=== PATIENT | male | born 1990 | race Caucasian/White ===

== ENCOUNTER 2021-02-18 02:43 | Emergency (ER) | payer SELFPAY ==
[2021-02-18] VITALS (7 sets, daily range): BP systolic 109–140; BP diastolic 73–96; PULSE 75–98; RESP 16–20; TEMP 36.7; O2SAT 97–100
--- NOTE | ~2021-02-18 | CT_ITS ---
EXAMINATION: CTA chest PE abdomen pel DATE: 02/18/2021 04:19 INDICATION: Covid. Shortness of breath. Right-sided abdominal pain. TECHNIQUE: Computed tomography angiography (CTA) of the chest and abdomen was performed with 100 mL O mnipaque-350 intravenous contrast timed to evaluate the pulmonary arteries. Coronal maximum intensity projection 3D-reconstructions were created by the technologist. Automated exposure control and itera tive reconstruction technique were employed. Exam dose: 420.66 mGy-cm total exam DLP. COMPARISON: 05/08/2010 two-view chest FINDINGS: There is diagnostic contrast enhancement of the pulmonary stenosis of pulmonary embolism. No thoracic aortic aneurysm or dissection. Normal heart size. No pericardial or pleural effusion. No pulmonary infiltrate or consolidation or pulmonary mass lesion. The liver, gallbladder, spleen, pancreas, bile ducts, pancreatic duct, and adrenal glands and kidneys are unremarkable. Normal caliber of the abdominal aorta. No intraperitoneal or retroperitoneal or pelvic mass lesion or adenopathy or ascites. The appendix is partially visualized visualized; the visualized portion appears unremarkable. There a re nondilated fluid containing small bowel segments. No bowel obstruction, bowel wall thickening, pne umatosis or intraperitoneal free air is evident. The urinary bladder and prostate gland are unremarkable. There is mild loss of height and anterior wedging of T6 and to a greater extent C7, chronic. There is hemangioma of T8 vertebral body. IMPRESSION: No evidence of pulmonary embolism Nonspecific abdomen Reviewed, dictated and finalized at [facility]. Reviewed, dictated and finalized at [facility].
--- NOTE | 2021-02-18 02:47 | ECG_ITS ---
Measurements Intervals [place] Rate: 76 P: 71 DE: 176 QRS: 58 QRSD: 101 T: 60 QT: 364 QTc: 410 Interpretive Statements SINUS RHYTHM WITH MARKED SINUS ARRHYTHMIA POSSIBLE LEFT ATRIAL ENLARGEMENT INCOMPLETE RIGHT BUNDLE BRANCH BLOCK BORDERLINE ECG Electronically Signed On 02-18-2021 6:18:19 CDT by Juan Groves D.O.
[2021-02-18 03:14] LABS: Anion Gap 13 mmol/L (8-16); Blood Urea Nitrogen 15 mg/dL (9-20); Calcium 9.6 mg/dL (8.4-10.2); Carbon Dioxide 30 mmol/L (22-30); Chloride 97 mmol/L (98-107); Estimated CRCL calculation 78 ml/min; Estimated Glomerular Filt Rate > 60; Glucose 135 mg/dL (65-110); Potassium 3.5 mmol/L (3.4-5.0); Sodium 140 mmol/L (137-145)
[2021-02-18 03:22] LABS: Basophils Percent Auto 0.4 % (0.2-1.2); Eosinophils Absolute Auto 0.2 K/mm3 (0-0.3); Eosinophils Percent Auto 1.5 % (0-4.4); Hematocrit 43.6 % (42.0-52.0); Hemoglobin 15.5 g/dL (14.0-18.0); Immature Granulocyte Absolute 0.02 K/mm3 (0.00-0.031); Immature Granulocyte Percent A 0.2 % (0-0.5); Lymphocytes Absolute Auto 4.48 K/mm3 (0.9-3.2); Lymphocytes Percent Auto 44.7 % (18.3-44.2); Mean Corpuscular HGB Conc 35.6 g/dl (32-36); Mean Corpuscular Hemoglobin 31.9 pg (26-34); Mean Corpuscular Volume 89.7 fl (80-100); Monocytes Absolute Auto 0.7 K/mm3 (0.1-0.6); Monocytes Percent Auto 6.5 % (2.6-8.5); Neutrophils Absolute Auto 4.7 K/mm3 (1.3-6.7); Neutrophils Percent Auto 46.7 % (45.5-73.1); Platelet Count Result 246 k/mm3 (150-375); Red Blood Count 4.86 M/mm3 (4.6-6.20); Red Cell Distribution Width 11.9 % (11.5-14.5)
--- NOTE | 2021-02-18 03:23 | ED.SYNCOPE ---
HPI - Syncope General Chief Complaint: Syncope <Mercedse Arcos MD - Last Filed: 02/18/21 07:48> Stated Complaint: Popped back, near syncope <Mercedes Arcos MD - Last Filed: 02/18/21 07:48> Time Seen by Provider: 02/18/21 03:22 <Mercedes Arcos MD - Last Filed: 02/18/21 07:48> Source: patient and family <Mercedes Arcos MD - Last Filed: 02/18/21 07:48> Mode of arrival: ambulatory <Mercedes Arcos MD - Last Filed: 02/18/21 07:48> Limitations: no limitations <Mercedes Arcos MD - Last Filed: 02/18/21 07:48> History of Present Illness HPI narrative: Patient is a 30-year-old male who presents for evaluation of left lower back pain, chest pain. Patient states that he was popping his back when he felt an immediate hdz of pain in his middle back which radiated into his chest. He states that he then nearly passed out and fell himself blacking out. He has felt dizzy and diffusely weak. He states that he is worried he is hemorrhaging internally. He denies fever, chills, nausea or vomiting. He reports chest pain that began while he was in the waiting room which is currently mild in nature no ripping or tearing sensation to the flank although he does report some left lower flank pain secondary to popping his back. Patient denies any current frontal abdominal pain. No bruising. He has been ambulatory. He denies any focal weakness or numbness. Patient states that he has a history of Covid last month for which she did not require hospitalization. No leg swelling or calf pain. No history of coagulopathy. Patient does report daily marijuana use. He denies other drug or alcohol use. <Mercedes Arcos MD - Last Filed: 02/18/21 07:48> Related Data Allergies/Adverse Reactions: Allergies Allergy/AdvReac Type Severity Reaction Status Date / Time No Known Allergies Allergy Verified 08/29/16 16:57 <Mercedes Arcos MD - Last Filed: 02/18/21 07:48> Review of Systems Review of Systems: CONSTITUTIONAL: Denies fever, chills, or sweats. EYES: Denies visual changes, redness, or discharge. ENT: Denies rhinorrhea, congestion, sore throat, or otalgia. CARDIOVASCULAR: Reports mild chest pain, reports palpitations, denies leg edema RESPIRATORY: Denies cough or dyspnea. GASTROINTESTINAL: Denies abdominal pain, nausea, vomiting, or diarrhea. Reports left flank pain. GENITOURINARY: Denies dysuria or hematuria. SKIN: Denies rash or itching. MUSCULOSKELETAL: Denies other joint pain or myalgia NEUROLOGIC: Denies headache, numbness, or weakness. Reports lightheadedness PSYCHIATRIC: Denies anxiety or depression. <Mercedes Arcos MD - Last Filed: 02/18/21 07:48> [facility] Social History Social History: Social History (Updated 02/18/21 @ 03:52 by Mercedes Arcos MD) Smoking status: Never smoker Alcohol intake: never Substance use: current Substance use type: marijuana Living arrangements: with family Gender identity (if verbalized by the patient): Male <Mercedes Arcos MD - Last Filed: 02/18/21 07:48> Exam Narrative: GENERAL: Awake, alert, conversant HEAD: Normocephalic, atraumatic. EYES: PERRLA and EOMI. ENT: Nares clear, no rhinorrhea or epistaxis. Mucous membranes moist. NECK: Supple.No cervical midline tenderness. CHEST: No respiratory distress, breathing even and non labored, no chest wall tenderness HEART: Regular rate, sinus rhythm ABDOMEN:Non distended, non tender Thorax: No midline thoracic or lumbar tenderness,+ left paraspinal tenderness EXTREMITIES: Normal range of motion. No edema. SKIN: Warm, dry, no rash. NEURO:No focal deficits. Alert and oriented x3. Finger to nose intact bilaterally. EOMs intact without nystagmus. No facial droop/asymmetry noted bilaterally. Grimace intact. Intact sensation in face. Hearing intact bilaterally. Shoulder shrug intact. Strength 5/5 bilateral upper extremities. Strength 5/5 bilateral lower extremities. Reflexes 2+ patella
[2021-02-18 04:14] LABS: Basophils Percent Auto 0.3 % (0.2-1.2); Eosinophils Absolute Auto 0.1 K/mm3 (0-0.3); Eosinophils Percent Auto 1.5 % (0-4.4); Hematocrit 41.9 % (42.0-52.0); Immature Granulocyte Absolute 0.01 K/mm3 (0.00-0.031); Immature Granulocyte Percent A 0.2 % (0-0.5); Lymphocytes Absolute Auto 2.18 K/mm3 (0.9-3.2); Lymphocytes Percent Auto 32.9 % (18.3-44.2); Mean Corpuscular HGB Conc 35.8 g/dl (32-36); Mean Corpuscular Hemoglobin 31.6 pg (26-34); Mean Corpuscular Volume 88.4 fl (80-100); Mean Platelet Volume 9.8 fl (7.4-10.4); Monocytes Absolute Auto 0.4 K/mm3 (0.1-0.6); Monocytes Percent Auto 6.2 % (2.6-8.5); Neutrophils Absolute Auto 3.9 K/mm3 (1.3-6.7); Neutrophils Percent Auto 58.9 % (45.5-73.1); Platelet Count Result 206 k/mm3 (150-375); Red Blood Count 4.74 M/mm3 (4.6-6.20); Red Cell Distribution Width 11.8 % (11.5-14.5); White Blood Count 6.6 K/mm3 (4.5-10.0)
[2021-02-18 04:24] LABS: Prothrombin Time 13.4 Seconds (11.1-14.7)
[2021-02-18 04:25] LABS: Partial Thromboplastin Time 29.8 SECONDS (22.3-36.8)
[2021-02-18] MEDS: SODIUM CHLORIDE 0.9% IV 1,000 ML 999 ML IV CONT (04:30)
[2021-02-18 04:51] LABS: Alanine Aminotransferase 25 U/L (4-50); Albumin Level 5.4 g/dL (3.5-5.1); Alkaline Phosphatase 110 U/L (38-126); Anion Gap 13 mmol/L (8-16); Aspartate Amino Transferase 35 U/L (17-59); Bilirubin,Total 0.5 mg/dL (0.2-1.3); Blood Urea Nitrogen 14 mg/dL (9-20); Calcium 9.6 mg/dL (8.4-10.2); Carbon Dioxide 28 mmol/L (22-30); Chloride 97 mmol/L (98-107); Estimated CRCL calculation 85 ml/min; Estimated Glomerular Filt Rate > 60; Glucose 123 mg/dL (65-110); Potassium 3.3 mmol/L (3.4-5.0); Sodium 138 mmol/L (137-145)
[2021-02-18 05:28] LABS: Troponin I < 0.012 ng/mL (0.000-0.034)
--- NOTE | 2021-02-18 06:44 | PC.NURSE ---
went in to draw 3 hour - Dr Arcos stated she didn't want the blood drawn unilt after 703 am.
[2021-02-18 06:58] LABS: Add Urine Microscopic? NO; Appearance Urine Clear (Clear); Bilirubin Urine Negative (Negative); Blood Urine Negative (Negative); Color Urine Straw (Yellow); Glucose Urine UA Negative (Negative); Ketones Urine Negative (Negative); Leukocyte Esterase Ur Negative LEU/UL (Negative); Nitrate Urine Negative (Negative); Protein Urine Negative (Negative); Urobilinogen Urine Negative mg/dL (<2.0)
[2021-02-18 07:18] LABS: Specific Grav Ur 1.055 (1.001-1.035)
[2021-02-18 07:47] LABS: Troponin I < 0.012 ng/mL (0.000-0.034)
== END 2021-02-18 08:26 | disposition home or self-care (01) ==
PROVIDERS: Emergency Provider Emergency Medicine; PCP Family Medicine Adolescent Medicine
DX: R55 Syncope and collapse (principal); M54.50 Low back pain, unspecified; R07.9 Chest pain, unspecified
CPT/HCPCS: 36415; 71275; 74177; 80048; 80053; 81003; 84484; 85025; 85610; 85730; 93005; 96360; 99284; J7030; Q9967